=== PATIENT | female | born 1950 | race Hispanic/Latino ===

== ENCOUNTER → 2025-01-06 | Outpatient (CLI) | payer OTHER ==
--- NOTE | 2025-01-06 17:53 | HMCIMG ---
EXAM: XR Right Shoulder, 2 Views. CLINICAL HISTORY: 74-year-old female with right shoulder pain. COMPARISON: None provided. FINDINGS: BONES: Severe rotator cuff arthropathy with superior displacement of the humeral head. JOINTS: The joint spaces are abnormal with impingement of the acromion. SOFT TISSUES: The soft tissues are unremarkable. IMPRESSION: 1. Severe rotator cuff arthropathy with superior displacement of the humeral head and impingement of the acromion. 2. MRI recommended. /[place]
== END | disposition home or self-care (01) ==
LOC: RAH 13:37
PROVIDERS: ATTEND Family Medicine
DX: M25.811 Other specified joint disorders, right shoulder (principal); M12.811 Other specific arthropathies, not elsewhere classified, right shoulder; M25.511 Pain in right shoulder
CPT/HCPCS: 73030